=== PATIENT | female | born 1975 | race Caucasian/White ===

== ENCOUNTER → 2020-02-09 14:05 | Outpatient (BNVA) | payer OTHER, SELFPAY | PROVIDERS: Family Provider Nurse Practitioner; Visit Provider Nurse Practitioner Family | DX: E55.9 Vitamin D deficiency, unspecified (principal); Z13.6 Encounter for screening for cardiovascular disorders; D64.9 Anemia, unspecified; E04.9 Nontoxic goiter, unspecified; E66.9 Obesity, unspecified | CPT/HCPCS: 80053; 80061; 81001; 82306; 84443; 85025 ==